=== PATIENT | female | born 1995 | race African-American/Black ===

== ENCOUNTER 2021-04-30 00:42 | Emergency (ER) | payer SELFPAY ==
[~2021-04-30] VITALS: Ht 172.7 cm; Wt 90.9 kg
--- NOTE | 2021-04-30 02:18 | PHYS DOC ---
General Adult EDM: Chief Complaint: TOE PROBLEM HPI: HPI: Patient is a 26 year old female patient here with right great toe pain. She reports that she was trying to bend over to lift something heavy, she stood up on her toes, and she felt instant pain. No direct trauma reported. She is able to ambulate without difficulty. She denies any other focal foot pain, denies ankle pain. No swelling. No wounds no bleeding. She took ibuprofen and Tylenol prior to arrival, this did help her pain. Her significant other also wanted to check in for chronic pain of his right upper extremity. Both wanted to come to the emergency department via EMS, but EMS would only oblige taking one of them, so they brought her here. The patient and her significant other are asking for a cab pass home. They are not homeless, they have a safe place to stay. Review of Systems: Review of Systems: Constitutional: Denies fever or chills. [] Respiratory: Denies cough or shortness of breath. [] Cardiovascular: Denies chest pain or edema. [] Musculoskeletal: Right great toe pain. No swelling. No other areas of joint or extremity or limb pain. Integument: Denies rash. Denies open wounds. Neurologic: Denies headache, focal weakness or sensory changes. [] Psychiatric: Denies depression or anxiety. [] Heart Score: C/O Chest Pain: No Risk Factors: Risk Factors: DM, Current or recent (<one month) smoker, HTN, HLP, family history of CAD, obesity. Risk Scores: Score 0 - 3: 2.5% MACE over next 6 weeks - Discharge Home Score 4 - 6: 20.3% MACE over next 6 weeks - Admit for Clinical Observation Score 7 - 10: 72.7% MACE over next 6 weeks - Early Invasive Strategies Physical Exam: PE: Constitutional: Well developed, well nourished, no acute distress, non-toxic appearance. [] HENT: Normocephalic, atraumatic Cardiovascular: Well-perfused appearing. +2 posterior tibial and +2 dorsalis pedis pulse. Lungs & Thorax: Respirations are nonlabored. Skin: Warm, dry, no erythema, no rash. No open wounds. Extremities: No pharmacy, no cyanosis, no clubbing, ROM intact, no edema. No swelling. No evidence of trauma. Palpation of the dorsal surface of her left great toe reproduces pain. She is able to flex and extend her toe at the IP and MTP joint. No warmth or erythema. No midfoot tenderness. No ankle tendern ess. She is ambulatory with a nonantalgic and steady gait. Neurologic: Alert and oriented X 3, normal motor function, normal sensory function, no focal deficits noted. Ambulatory with a nonantalgic and steady gait. Psychologic: She is cooperative. [] EKG: EKG: [] Radiology/Procedures: Radiology/Procedures: IMAGING REPORT Signed PATIENT: LINDA MACDONALD ACCOUNT: [id number] : 1995 LOCATION: ER AGE: 26 SEX: F EXAM STATUS: REG ER ORD. PHYSICIAN: JUDITH DOZIER DO REASON: great toe pain PROCEDURE: FOOT RIGHT 3V XR FOOT_RIGHT 3 VIEWS History: Right toe pain. Comparison: None. Technique: 3 views of the right foot. Findings: Osseous mineralization is normal. No acute fracture or dislocaton. No significant degenerative changes. Soft tissues are unremarkable. Impression: 1. Unremarkable right foot. Electronically signed by: Jens Mars MD (04/30/2021 3:25 AM) [facility] DICTATED and SIGNED BY: JENS MARS MD DATE: 04/30/21 [id number] 0 Course & Med Decision Making: Course & Med Decision Making Pertinent Labs and Imaging studies reviewed. (See chart for details) I discussed the findings, differential diagnosis and plan of care with the patient. Imaging is unremarkable for acute fracture. Physical exam is quite benign appearing. No indication for further exams at this time based on current clinical presentation. I told her to follow-up with her primary care physician. Return precautions are given. Dragon Disclaimer: Dragon Disclaimer: This electronic medical record was generated, in whole or in part, using a voice recognition dictation system. Departure Departure Impression: Primary Impression: Pain of left great toe Disposition: HOME / SELF CARE / HOMELESS Condition: STABLE Referrals: NO PCP (PCP) Patient Instructions: Foot Sprain Additional Instructions: You may continue taking [id number] Tylenol and ibuprofen for pain. Ice and elevate your foot at rest. Return for any new injury or trauma, if you n otice severe redness, swelling, red streaks going up your foot or leg, or any other concerns. Follow-up with your primary care physician peer JUDITH DOZIER DO Apr 30, 2021 02:18
[2021-04-30 02:31] VITALS: BP 134/92
--- NOTE | 2021-04-30 03:28 | RAD ---
XR FOOT_RIGHT 3 VIEWS History: Right toe pain. Comparison: None. Technique: 3 views of the right foot. Findings: Osseous mineralization is normal. No acute fracture or dislocaton. No significant degenerative change s. Soft tissues are unremarkable. Impression: 1. Unremarkable right foot. Electronically signed by: Jens Mars MD (04/30/2021 3:25 AM) [facility]
== END 2021-04-30 04:07 | disposition home or self-care (01) ==
LOC: ER 00:42
DX: M79.674 Pain in right toe(s) (principal)
CPT/HCPCS: 73630; 99283

== ENCOUNTER 2021-06-10 14:45 | Emergency (ER) | payer MEDICAID ==
[~2021-06-10] VITALS: Ht 172.7 cm; Wt 80.8 kg
[2021-06-10 17:03] VITALS: BP 158/119
[2021-06-10] MEDS ORDERED: FLUCONAZOLE 100 MG TABLET. PO ONE (17:15)
[2021-06-10] MEDS ORDERED: cefTRIAXone IM 500 MG VIAL. IM ONE (17:15)
--- NOTE | 2021-06-10 17:27 | PHYS DOC ---
Past Medical History Past Surgical History: No Surgical History General Adult EDM: Chief Complaint: SEXUALLY TRANSMITTED DISEASE HPI: HPI: Patient is a 26 year old female who presents with vaginal odor. She states that she had gotten either chlamydia or gonorrhea or Trichomonas but is unsure of what it never fully took antibiotics about a month ago. She states she is having sexual intercourse with the same person and he never got treated because she never told them. She states that his "penis is very sore". She states that she is also having a lot of itching and she has a itchy type rash that popped up 2 weeks ago between her butt cheeks. She states she "does not wear underwear so she is unsure if she has any discharge but she always has an odor." Patient denies any pain, burning, urinary symptom, abdominal pain, fever, blood in her urine, spotting, vaginal discharge that she knows of, nausea or vomiting. Patient also has a history and reports use of amphetamines, marijuana, wet, heroin. Review of Systems: Review of Systems: Constitutional: Denies fever or chills. [] Eyes: Denies change in visual acuity. [] HENT: Denies nasal congestion or sore throat. [] Respiratory: Denies cough or shortness of breath. [] Cardiovascular: Denies chest pain or edema. [] GI: Denies abdominal pain, nausea, vomiting, bloody stools or diarrhea. [] : Denies dysuria. + Vaginal rash, + STD concern [] Musculoskeletal: Denies back pain or joint pain. [] Integument: Denies rash. [] Neurologic: Denies headache, focal weakness or sensory changes. [] Endocrine: Denies polyuria or polydipsia. [] Lymphatic: Denies swollen glands. [] Psychiatric: Denies depression or anxiety. [] Heart Score: C/O Chest Pain: No Allergies: Allergies: Allergies Coded Allergies Type Severity Reaction Last Updated Verified Penicillins Allergy Unknown 04/30/21 Yes Physical Exam: PE: Constitutional: Well developed, well nourished, no acute distress, non-toxic appearance. [] HENT: Normocephalic, atraumatic, bilateral external ears normal, oropharynx moist, no oral exudates, nose normal. [] Eyes: PERRLA, EOMI, conjunctiva normal, no discharge. [] Neck: Normal range of motion, no tenderness, supple, no stridor. [] Cardiovascular:Heart rate regular rhythm, no murmur [] Lungs & Thorax: Bilateral breath sounds clear to auscultation [] Abdomen: Bowel sounds normal, soft, no tenderness, no masses, no pulsatile masses. [] Skin: Warm, dry, no erythema, nontender yeast type satellite lesion rash vaginally and buttock area mainly on the left inner lower side with white discharge. [] Back: No tenderness, no CVA tenderness. [] Extremities: No tenderness, no cyanosis, no clubbing, ROM intact, no edema. [] Neurologic: Alert and oriented X 3, normal motor function, normal sensory fu nction, no focal deficits noted. [] Psychologic: Affect normal, judgement normal, mood normal. [] EKG: EKG: [] Radiology/Procedures: Radiology/Procedures: [] Course & Med Decision Making: Course & Med Decision Making Pertinent Labs and Imaging studies reviewed. (See chart for details) See HPI. Alert and oriented x4. Ambulatory with a steady gait. Speaks in full clear sentences. Afebrile. Since patient is noncompliant with antibiotics with STDs in the past I have chosen to give her azithromycin for chlamydia and Rocephin IM for gonorrhea. Yeast is seen vaginally and I have given her a one- time dose of Diflucan. Although the source to the inner butt cheek of the left side close to the labia is appears to be nontender but is a sore in a satellite lesion type rash I am assuming this is probably yeast related but I went ahead and swab the area for herpes. She states these are nontender areas. She denies any kind of burning in the area. Urinalysis shows infection. Pelvic Exam: Window Shade Cutter present Abdomen: Nontender External Genitalia: Normal vaginal skin, left inner buttock close to vagina with satellite abrasion looking sores Speculum: Normal vaginal mucosa, white cottage cheese looking cervical discharge Bimanual: No adnexal masses or tenderness, No CMT [] Dragon Disclaimer: Dragon Disclaimer: This electronic medical record was generated, in whole or in part, using a voice recognition dictation system. Departure Departure Impression: Primary Impression: Concern about sexually transmitted disease in female without diagnosis Additional Impressions: Bacterial vaginosis UTI (urinary tract infection) Qualified Codes: N39.0 - Urinary tract infection, site not specified Disposition: HOME / SELF CARE / HOMELESS Condition: STABLE Referrals: NO PCP (PCP) NORA LOZANO MD Patient Instructions: Bacterial Vaginosis, Sexually Transmitted Disease, Urinary Tract Infection, Yeast Infection of the Skin, [id number] Additional Instructions: Follow up with a die cast technician as soon ass possible. You have been treated today for chlamydia and gonorrhea your test for chlamydia gonorrhea will be back in 48 hours and you will be called only if something is positive. Take antibiotic for bacterial vaginosis that will also help with yeast infection. Take this with food and do not drink alcohol with this medication. Take it until it is all gone. Scripts Nitrofurantoin Monohyd/M-Cryst (MACROBID 100 MG CAPSULE) 100 Mg Capsule 1 CAP PO BID for 7 Days, #14 CAP 0 Refills Prov: JUAN JOSE EMMANUEL TEA BLENDER 06/10/21 Metronidazole (METRONIDAZOLE) 500 Mg Tablet 1 TAB PO BID for 7 Days, #14 TAB 0 Refills Prov: JUAN JOSE EMMANUEL TEA BLENDER 06/10/21 JUAN JOSE EMMANUEL TEA BLENDER Jun 10, 2021 17:27
[2021-06-10] MEDS ORDERED: AZITHROMYCIN 250 MG TABLET. PO ONE (17:30)
[2021-06-10] MEDS ORDERED: METR-34 PO (17:45)
[2021-06-10 18:02] LABS: BILIRUBIN,URINE NEGATIVE (NEG); CLARITY,URINE CLEAR; COLOR,URINE YELLOW; NITRITE,URINE POSITIVE (NEG); PH,URINE 7.5 (<5.0-8.0); PROTEIN,URINE NEGATIVE (NEG-TRACE); UROBILINOGEN,URINE 0.2 mg/dL (0.2 mg/dL)
[2021-06-10 18:11] LABS: BACTERIA,URINE MANY /HPF (0-FEW)
[2021-06-10 18:13] LABS: RBC,URINE OCC /HPF (0-2)
[2021-06-10] MEDS ORDERED: NITR100C62 PO (18:18)
[2021-06-13 16:10] LABS: GC PROBE Positive (Negative)
[2021-06-15 07:18] LABS: HERPES SIMPLEX TYPE 1 Positive (Negative); HERPES SIMPLEX TYPE 2 Negative (Negative)
== END 2021-06-10 18:49 | disposition home or self-care (01) ==
LOC: ER 14:45
DX: N39.0 Urinary tract infection, site not specified (principal); N76.0 Acute vaginitis; B96.89 Other specified bacterial agents as the cause of diseases classified elsewhere; Z20.2 Contact with and (suspected) exposure to infections with a predominantly sexual mode of transmission; Z88.0 Allergy status to penicillin
CPT/HCPCS: 81001; 81025; 87077; 87086; 87186; 87491; 87529; 87591; 96372; 99284; J0696; Q0111; 36415